=== PATIENT | female | born 1940 | race Caucasian/White ===

== ENCOUNTER 2019-05-11 10:50 | Outpatient (CLI) | payer MEDICARE, BC ==
[~2019-05-11 10:50] MED LIST: Gadobenate Dimeglumine 529 MG/1 ML (20ML VIAL) ONE
--- NOTE | 2019-05-11 12:06 | MRI ---
Exam: Brain MRI with and without contrast HISTORY: Breast cancer. Memory loss. COMPARISON: None FINDINGS: Gradient echo sequence: No hemorrhage Calvarium: Appropriate T1 marrow signal intensity Midline brain parenchyma: Unremarkable Cerebrum:No evidence of a brain parenchymal mass, mass effect or midline shift. Age-appropriate atrop hy. With the exception of the right nipple campus, cortical witt-white matter change preserved. There are T2 and FLAIR white matter hyperintensities likely due to chronic small vessel ischemic can ge. There is T2 and FLAIR hyperintensity, along with restricted diffusion involving the right hippocampus. There is no evidence of associated enhancement. Ventricles: No evidence of hydrocephalus. 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 Sinuses and mastoid air cells: Mild mucosal thickening in the paranasal sinuses Diffusion: Restricted diffusion involving the right hippocampus Postcontrast images: No pathologic enhancement of the brain parenchyma. IMPRESSION: 1. Abnormal signal intensity and restricted diffusion involving the right hippocampus. 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 Follow-up imaging in 4-6 weeks is recommended to assess for expected absence of restricted diffusion. [facility] T
== END 2019-05-11 10:51 | disposition home or self-care (01) ==
LOC: SCSMRI 10:50
PROVIDERS: ATTEND Psychiatry & Neurology Neurology
DX: E44.1 Mild protein-calorie malnutrition (principal); E53.8 Deficiency of other specified B group vitamins; E55.9 Vitamin D deficiency, unspecified; E78.49 Other hyperlipidemia; E16.2 Hypoglycemia, unspecified; R41.3 Other amnesia
CPT/HCPCS: 70553; 82565; A9577

== ENCOUNTER 2021-12-05 12:33 | Outpatient (CLI) | payer MEDICARE, BC | END 2021-12-05 12:34 | disposition home or self-care (01) | LOC: EEG 12:33 | PROVIDERS: ATTEND Psychiatry & Neurology Neurology | DX: I63.50 Cerebral infarction due to unspecified occlusion or stenosis of unspecified cerebral artery (principal); G31.83 Neurocognitive disorder with Lewy bodies; F02.80 Dementia in other diseases classified elsewhere, unspecified severity, without behavioral disturbance, psychotic disturbance, mood disturbance, and anxiety | CPT/HCPCS: 95816; 95957 ==

== ENCOUNTER 2024-04-15 11:01 | Emergency (ER) | payer BC, MEDICARE ==
[2024-04-15 12:09] LABS: #Basophils 0.03 10x3/uL (0.0-0.2); %Basophils 0.5 % (0.0-1.0); %Eosinophils 1.2 % (0.0-10.0); %Lymphocytes 30.3 % (21.0-51.0); %Neutrophils 56.8 % (42.0-75.0); Hematocrit 40.2 % (36.0-47.0); Hemoglobin 13.3 g/dL (12.0-16.0); Mean Corpuscular HGB CONC 33.1 g/dL (32.0-36.0); Mean Corpuscular Hemoglobin 30.5 pg (27.0-31.0); Mean Corpuscular Volume 92.2 fL (78.0-98.0); Mean Platelet Volume 9.6 fL (7.4-10.4); Platelet Count 255 10x3/uL (130-400); RBC Distribution Width 15.4 % (11.5-14.5); Red Blood Cell (RBC) Count 4.36 mill/uL (4.20-5.40)
[2024-04-15 12:40] LABS: CRP,High Sensitivity (Inhouse) 0.06 mg/dL (< or = 0.5)
[2024-04-15 12:41] LABS: ALT (SGPT) 11 U/L (8-55); AST (SGOT) 16 U/L (5-34); Albumin 3.2 g/dL (3.4-4.8); Alkaline Phosphatase 93 U/L (40-110); Anion Gap 10 mmol/L (10-20); BUN (Urea Nitrogen) 28 mg/dL (9.8-20.1); Bilirubin, Total 0.8 mg/dL (0.2-1.2); Calc. Creatinine Clearance 0 mL/min (70-130); Calcium 9.8 mg/dL (7.8-10.44); Carbon Dioxide 26 mmol/L (23-31); Chloride 110 mmol/L (98-107); Estimated GFR 68; Globulin 3.2 g/dL (2.4-3.5); Glucose 78 mg/dL (83-110); Potassium 3.9 mmol/L (3.5-5.1); Protein, Total 6.4 g/dL (5.8-8.1); Sodium 142 mmol/L (136-145)
== END 2024-04-15 13:24 | disposition home or self-care (01) ==
LOC: ERS 11:01
DX: S91.302A Unspecified open wound, left foot, initial encounter (principal); L03.116 Cellulitis of left lower limb; F03.90 Unspecified dementia, unspecified severity, without behavioral disturbance, psychotic disturbance, mood disturbance, and anxiety; Z75.3 Unavailability and inaccessibility of health-care facilities; X58.XXXA Exposure to other specified factors, initial encounter
CPT/HCPCS: 36415; 36416; 80053; 85025; 86141

== ENCOUNTER 2024-09-27 08:46 | Emergency (ER) | payer MEDICARE | END 2024-09-27 12:20 | LOC: ERS 08:46 | DX: S70.01XA Contusion of right hip, initial encounter (principal); G30.9 Alzheimer's disease, unspecified; F02.80 Dementia in other diseases classified elsewhere, unspecified severity, without behavioral disturbance, psychotic disturbance, mood disturbance, and anxiety; H40.9 Unspecified glaucoma; E53.8 Deficiency of other specified B group vitamins; W18.30XA Fall on same level, unspecified, initial encounter; Z79.899 Other long term (current) drug therapy | CPT/HCPCS: 99283 ==